=== PATIENT | male | born 1980 | race African-American/Black ===

== ENCOUNTER 2017-11-13 06:44 | Emergency (ER) | payer SELFPAY ==
[~2017-11-13] VITALS: Ht 182.9 cm; Wt 82.0 kg
[2017-11-13] MEDS ORDERED: LORazepam 2 MG/ML VIAL ONE (06:47)
[2017-11-13] MEDS ORDERED: SODIUM CHLOR 0.9% 1000 ML INJ 1,000 ML IV ONE (06:47)
[2017-11-13 06:49] VITALS: BP 127/70; PULSE 71; RESP 22; O2SAT 95
[2017-11-13] MEDS ORDERED: SODIUM CHLORIDE 0.9% FLUSH 10 ML FLUSH IVF PRN (07:00)
[2017-11-13] MEDS ORDERED: LORazepam 2 MG/ML VIAL IVS ONE (07:00)
[2017-11-13 07:03] VITALS: BP 117/58; PULSE 77; RESP 16; O2SAT 98
[2017-11-13] MEDS ORDERED: FOSPHENYTOIN INJ 1,000 MGPE in SODIUM CHLORIDE 0.9% INJ 50 ML IV ONE (07:15)
[2017-11-13 07:21] LABS: AUTOMATED NEUTROPHIL # 5.7 TH/MM3 (1.8-7.7); BASOPHIL # 0.1 TH/MM3 (0-0.2); BASOPHIL % 0.8 % (0.0-2.0); EOSINOPHIL # 0.4 TH/MM3 (0-0.4); EOSINOPHIL % 3.7 % (0.0-4.0); HEMATOCRIT 50.6 % (39.0-51.0); HEMOGLOBIN 16.5 GM/DL (13.0-17.0); LYMPH % 34.8 % (9.0-44.0); LYMPHOCYTE # 3.9 TH/MM3 (1.0-4.8); MEAN CELL VOLUME 100.3 FL (80.0-100.0); MEAN CORPUSCULAR HEMOGLOBIN 32.8 PG (27.0-34.0); MEAN CORPUSCULAR HGB CONC 32.7 % (32.0-36.0); MEAN PLATELET VOLUME 8.1 FL (7.0-11.0); MONO % 9.4 % (0.0-8.0); MONOCYTE # 1.1 TH/MM3 (0-0.9); NEUT % 51.3 % (16.0-70.0); PLATELET COUNT 144 TH/MM3 (150-450); RED BLOOD COUNT 5.04 MIL/MM3 (4.50-5.90); RED CELL DISTRIBUTION WIDTH 13.9 % (11.6-17.2); WHITE BLOOD COUNT 11.2 TH/MM3 (4.0-11.0)
[2017-11-13] MEDS ORDERED: MIDAZOLAM HCL 2 MG/2 ML VIAL IV PUSH ONE (07:30)
[2017-11-13 07:43] LABS: ALBUMIN 3.8 GM/DL (3.4-5.0); ALT (GPT) 17 U/L (12-78); AST (GOT) 17 U/L (15-37); BICARBONATE 14.9 MEQ/L (21.0-32.0); BLOOD UREA NITROGEN 10 MG/DL (7-18); CALCIUM 8.8 MG/DL (8.5-10.1); CHLORIDE 114 MEQ/L (98-107); CREATININE 1.28 MG/DL (0.60-1.30); GLOMERULAR FILTRATION RATE 77 ML/MIN (>89); GLUCOSE,RANDOM 97 MG/DL (74-106); SODIUM (NA) 147 MEQ/L (136-145)
[2017-11-13 07:45] LABS: ALKALINE PHOSPHATASE 80 U/L (45-117); TOTAL BILIRUBIN ADULT 0.2 MG/DL (0.2-1.0)
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
[2017-11-13 08:19] VITALS: BP 106/64; PULSE 73; RESP 16; O2SAT 100
[2017-11-13 09:36] LABS: BILIRUBIN, URINE NEG (NEG); BLOOD, URINE MOD (NEG); GLUCOSE,URINE NEG (NEG); HYALINE CAST, URINE 3 /lpf (RARE); KETONE, URINE NEG (NEG); MUCUS URINE FEW /lpf (OCC); NITRITE,URINE NEG (NEG); SQUAMOUS EPITHELIAL CELL URINE <1 /hpf (0-5); URINE COLOR YELLOW (YELLW/STRAW); URINE LEUKOCYTE ESTERASE NEG (NEG)
[2017-11-13 09:59] VITALS: BP 115/71; PULSE 84; RESP 17; O2SAT 100
--- NOTE | 2017-11-13 10:10 | RADRPT ---
EXAM DATE: 11/13/2017 9:47 AM EDT AGE/SEX: 37 years / Male INDICATIONS: Seizures. CLINICAL DATA: This is the patient's initial encounter. Patient reports that signs and symptoms have been present for 1 day and indicates a pain score of Nonresponsive. MEDICAL/SURGICAL HISTORY: . Seizures. Non-responsive. RADIATION DOSE: 56.35 CTDI (mGy) COMPARISON: No prior exams available for comparison. TECHNIQUE: CT of the head without contrast. Using automated exposure control and adjustment of the mA and/or kV according to patient size, radiation dose was kept as low as reasonably achievable to ob tain optimal diagnostic quality images. DICOM format image data is available electronically for revi ew and comparison. FINDINGS: Cerebrum: The ventricles are normal. No midline shift, mass lesion, hemorrhage or acute infarction. No extraaxial fluid collections are seen. Posterior Fossa: The cerebellum and brainstem demonstrate no acute abnormality. The 4th ventricle is midline. The cerebellopontine angle is within normal limits. Extracranial: The visualized sinuses are clear. Skull: The calvaria is intact. No skull fracture. CONCLUSION: No acute intracranial abnormality is identified. Electronically signed by: Ruperto Georges MD 11/13/2017 10:09 AM EDT
--- NOTE | 2017-11-13 12:13 | RADRPT ---
EXAM DATE: 11/13/2017 12:07 PM EDT AGE/SEX: 37 years / Male INDICATIONS: Right shoulder pain post fall. CLINICAL DATA: This is the patient's initial encounter. Patient reports that signs and symptoms have been present for 1 day and indicates a pain score of 10/10. MEDICAL/SURGICAL HISTORY: None. None. COMPARISON: No prior exams available for comparison. FINDINGS: Multiple views of the right shoulder were obtained and demonstrate a nondisplaced fracture deformity involving the head and neck. The glenoid is intact. There is a normal acromioclavicular relationship. CONCLUSION: Nondisplaced fracture deformity of the humeral head and neck. Electronically signed by: Parminder Mar MD 11/13/2017 12:11 PM EDT
[2017-11-13] MEDS ORDERED: NORC5TAB PO (12:55)
[2017-11-13] MEDS ORDERED: ACETAMINOPHEN/HYDROcodone 325 MG/5 MG TAB PO ONE (13:00)
[2017-11-13 13:07] VITALS: BP 144/78
--- NOTE | 2017-11-13 19:03 | EKG ---
Date Performed: 11/13/2017 Time Performed: 06:56:01 PTAGE: 37 years EKG: Sinus rhythm NONSPECIFIC T-WAVE ABNORMALITY BORDERLINE ECG PREVIOUS TRACING : 02/09/2011 19.38 When compared to prior EKG,patient is no longer bradycardic DOCTOR: Marixa Peres Interpretating Date/Time 11/13/2017 19:01:14
== END 2017-11-13 13:32 | disposition home or self-care (01) ==
LOC: NEPC 06:44
DX: R56.9 Unspecified convulsions (principal); S42.214A Unspecified nondisplaced fracture of surgical neck of right humerus, initial encounter for closed fracture; R94.31 Abnormal electrocardiogram [ECG] [EKG]; F19.90 Other psychoactive substance use, unspecified, uncomplicated; F12.90 Cannabis use, unspecified, uncomplicated; Z72.0 Tobacco use; W51.XXXA Accidental striking against or bumped into by another person, initial encounter
CPT/HCPCS: 29240; 70450; 73030; 80053; 80307; 81001; 82550; 85025; 93005; 96365; 96375; 99285; J2250; J7030; Q2009; J2060

== ENCOUNTER 2017-12-19 11:26 | Inpatient (IN) ==
[~2017-12-19 11:26] MED LIST: Lidocaine PF 1% Inj 5 ML Syringe INFILTRATN ONE
[2017-12-19] MEDS ORDERED: Ketamine Inj 200 MG/20 ML Vial IM ONE (11:41)
[2017-12-19] MEDS ORDERED: Ketamine Inj 500 MG/10 ML Vial IM ONE (12:00)
[2017-12-19 12:02] LABS: Baso # (Auto) 0.1 th/mm3 (0.0-0.2); Baso % (Auto) 1.2 % (0.0-2.0); Eos # (Auto) 0.2 th/mm3 (0.0-0.4); Eos % (Auto) 2.5 % (0.0-4.0); Hematocrit 45.8 % (39.0-51.0); Lymph # (Auto) 3.2 th/mm3 (1.0-4.8); Lymph % (Auto) 42.7 % (9.0-44.0); Mean Corpuscular Hemoglobin 34.3 pg (27.0-34.0); Mean Corpuscular Volume 98.1 fL (80.0-100.0); Mean Platelet Volume 8.1 fL (7.0-11.0); Mono # (Auto) 0.5 th/mm3 (0.0-0.9); Mono % (Auto) 6.8 % (0.0-8.0); Neut # (Auto) 3.5 th/mm3 (1.8-7.7); Neut % (Auto) 46.8 % (16.0-70.0); Platelet Count 139 th/mm3 (150-450); Red Blood Count 4.67 mil/mm3 (4.50-5.90); Red Cell Distribution Width 13.6 % (11.6-17.2); White Blood Count 7.4 th/mm3 (4.0-11.0)
[2017-12-19 12:25] LABS: Alkaline Phosphatase 83 U/L (45-117); Total Protein 7.8 g/dL (6.4-8.2)
--- NOTE | 2017-12-19 12:39 | ED ---
HPI General Chief Complaint: Seizure Stated Complaint: Seizures Time Seen by Provider: 12/19/17 11:29 Source: family and EMS Mode of arrival: EMS Limitations: altered mental status History of Present Illness HPI Narrative: The patient is a 37-year-old male was brought in by EMS after experiencing 10 minute seizure at home. He had a previous event recently associated with dehydration. He is not on anti-seizure medications. His sister that was here reported that he was out working all day without any hydration. His girlfriend that came a few minutes later stated that they did smoke marijuana but he does smoke marijuana daily. They deny any synthetic marijuana K2 or spice. No other drugs. EMS gave 3 mg of Versed en route with eventually cessation of his seizure. On arrival here the patient was postictal confused and combative with obvious deformity of the right shoulder. MD complaint: seizure Onset (ago): minute(s) (15) Description of Episode: loss of consciousness and tonic-clonic movement Duration of episode: 10 -: minutes(s) Witnessed: yes - by other (Fianc) Trauma: Yes (RIGHT SHOULDER) Seizure History: other (RECENT SEIZURE ) Place: home Possible Precipitating Event: drug use (MARIJUANA), lack of sleep and other ( DEHYDRATION AND FATIGUE) Related Data Home Medications Medication Instructions Recorded Confirmed No Known Home Medications 12/19/17 12/19/17 Allergies Allergy/AdvReac Type Severity Reaction Status Date / Time No Known Allergies Allergy Unverified 12/19/17 11:31 Review of Systems ROS Unobtainable unobtainable due to mental status Except as stated in HPI: all other systems reviewed are negative [facility] Medical History Medical History Patient denies medical problems (Acute) Surgical History Surgical History No history of previous surgery (Acute) Social History Social History Substance History: Active Abuse Second Hand Smoke Exposure: No Smoking Status: Current every day smoker Tobacco Type: Cigarettes How Often Do You Have a Drink Containing Alcohol: 2 to 4 times a month Recent Travel in [facility] within the Last 8 Weeks: No Recent Out of Country Travel within the Last 8 Weeks: No Exam Const General: acute distress, combative and other (Right upper extremity sling.) Nutritional Appearance: thin Orientation: awake and confused Limitations: altered mental status [facility] Head: normal to inspection Nose: external nose normal Face and sinus: normal facial exam Eyes General: appearance normal, both eyes and all related structures Conjunctivae: conjunctivae normal Sclera: sclerae normal Pupils: PERRL Neck Neck: normal visual inspection and full ROM Chest Chest: normal inspection of the chest and no crepitus Resp Effort & Inspection: normal respiratory effort and able to speak in complete sentences Auscultation: clear to auscultation bilaterally Cardio Rate: bradycardic Rhythm: regular rhythm Heart Sounds: S1 normal, S2 normal and no murmurs GI Inspection: normal to inspection Palpation: soft and nontender External: normal external exam and circumcised Penis: normal penis Back/Spine/Pelvis Back: no CVA tenderness Cervical Spine: No normal cervical lordosis and loss of normal cervical lordosis Neuro General: alert, awake, tone normal, moves all extremities, normal light touch, pain and propioception, no focal motor deficits and CN's II-XI intact bilaterally Cranial Nerves: PERRL Speech: speech normal Extrem Other: Deformity noted on right shoulder. Patient is on the sling. Radial and ulnar pulses are intact. Sensation intact no regimental patch numbness. Tenderness to palpation over the glenohumeral joint Course Reevaluation(s) Reevaluation #1: Pt isimproving. He was given IM ketamine 50 mg with marked improvement of his agitation resolution of his pain. He is more consolable at this time able to communicate and he told his that he had smoked some marijuana prior having seizures he is not sure if it was laced or if was a sympathetic. He thinks it was regular marijuana. He had similar symptoms in the past after he smoked. Appears that he is having his dislocated right shoulder was sent to radiology suite for imaging. Hemodynamically stable. Time: 12:39 Reevaluation #3: Called in by the patient's fianc stating that he looks like he is getting foggy again like he did prior to having his seizure. Patient is alert and oriented. Appears a little chronic. We will get a given fluids and also start him on Keppra prophylactically. He is alert and oriented. No seizure-like activity. Time: 15:43 Initial Documented Vital Signs Temperature 97.9 F 12/19/17 11:38 Pulse Rate 82 12/19/17 11:38 Respiratory Rate 22 12/19/17 11:38 Blood Pressure 147/71 H 12/19/17 11:38 Pulse Oximetry 98 12/19/17 11:38 Last Documented Vital Signs Temperature 98.3 F 12/19/17 18:08 Pulse Rate 58 L 12/19/17 18:08 Respiratory Rate 17 12/19/17 18:08 Blood Pressure 148/75 H 12/19/17 18:08 Pulse Oximetry 99 12/19/17 18:08 Critical Care Time Critical Care Time: Yes Total Critical Care Time: 30 Attestation: Aggregate critical care time was 30 minutes. Time to perform other separately billable procedures was not included in the critical care time. My time did not include minutes spent treating any other patients simultaneously or on activities that did not directly contribute to the patient's treatment. The services I provided to this patient were to treat and/or prevent clinically significant deterioration that could result in: loss of current lifestyle I provided critical care services requiring my management, as noted below: Chart data review, documentation time, medication orders and management, vital sign assessments/reviewing monitor data, ordering and reviewing lab tests, ordering and interpreting/reviewing x-rays and diagnostic studies, care of the patient and discussion of the patient with the admitting physicians.. Medical Decision Making MDM Narrative Medical decision making narrative: Patient status epilepticus requiring several dose of Versed by EMS for resolution of his seizure. Traumatic right shoulder fracture with mild posterior dislocation of the humeral head in relation to the glenohumeral joint comminuted intra-articular. Discuss with orthopedic surgeon clinical sales consultant who recommended reduction in the ED however due to time constraints and dealing with other critical care patients in addition to the fact that I did not feel comfortable reducing the shoulder on this patient being that he was not compliant initially with even a simple exam and he required ketamine for analgesia as well as relief from his agitation. Received several doses of morphine. We did obtain a CT of the right shoulder that revealed the above- mentioned injuries. The prostate was discussed with the orthopedic surgeon several times however were not able to reduce him in the ED department and the patient was transferred to the floor while we were dealing with a critical care patient. Findings and presentation also discussed with admitting team. The patient was given IV Keppra for seizure prophylaxis. Fluids were also given. Tox screen was positive for cannabinoids and benzodiazepines however those were given by EMS en route. No sensory or neural deficits on affected extremity distally. No regimental patch paresthesias. Analgesia was provided with IV morphine. Patient was placed on a sling and swath as per or so recommendations. Lab Data Lab results reviewed: Yes I reviewed the patient's lab results. Result diagrams: 12/19/17 11:35 12/19/17 11:35 Lab Results 12/19/17 12/19/17 12/19/17 Range/Units 11:35 11:35 11:35 WBC 7.4 (4.0-11.0) th/mm3 RBC 4.67 (4.50-5.90) mil/mm3 Hgb 16.0 (13.0-17.0) gm/dL Hct 45.8 (39.0-51.0) % MCV 98.1 (80.0-100.0) fL MCH 34.3 H (27.0-34.0) pg MCHC 35.0 (32.0-36.0) % RDW 13.6 (11.6-17.2) % Plt Count 139 L (150-450) th/mm3 MPV 8.1 (7.0-11.0) fL Neut % (Auto) 46.8 (16.0-70.0) % Lymph % (Auto) 42.7 (9.0-44.0) % [place] % (Auto) 6.8 (0.0-8.0) % Eos % (Auto) 2.5 (0.0-4.0) % Baso % (Auto) 1.2 (0.0-2.0) % Neut # (Auto) 3.5 (1.8-7.7) th/mm3 Lymph # (Auto) 3.2 (1.0-4.8) th/mm3 [place] # (Auto) 0.5 (0.0-0.9) th/mm3 Eos # (Auto) 0.2 (0.0-0.4) th/mm3 Baso # (Auto) 0.1 (0.0-0.2) th/mm3 WBC Differential . Differential Comment Auto diff final ESR (0-15) mm/hr Sodium 143 (136-145) meq/L Potassium 4.5 (3.5-5.1) meq/L Chloride 114 H (98-107) meq/L Carbon Dioxide 21.3 (21.0-32.0) meq/L Anion Gap 8 (5-15) meq/L BUN 14 (7-18) mg/dL Creatinine 1.34 H (0.60-1.30) mg/dL Estimated GFR 73 L (>89) mL/min Random Glucose 95 (74-106) mg/dL Calcium 8.7 (8.5-10.1) mg/dL Total Bilirubin 0.4 (0.2-1.0) mg/dL AST 21 (15-37) U/L ALT 20 (12-78) U/L Alkaline Phosphatase 83 (45-117) U/L Total Protein 7.8 (6.4-8.2) g/dL Albumin 3.9 (3.4-5.0) g/dL Vitamin B12 (193-986) pg/mL TSH (0.358-3.740) uIU/mL Thyroxine (T4) (4.5-12.1) mcg/dL Urine Opiates Screen (Neg) Ur Barbiturates Screen (Neg) Ur Amphetamines Screen (Neg) U Benzodiazepines Scrn (Neg) Urine Cocaine Screen (Neg) U Cannabinoids Screen (Neg) Serum Alcohol Less than 3 (0-5) mg/dL 12/19/17 12/19/17 12/19/17 Range/Units 11:35 11:35 13:44 WBC (4.0-11.0) th/mm3 RBC (4.50-5.90) mil/mm3 Hgb (13.0-17.0) gm/dL Hct (39.0-51.0) % MCV (80.0-100.0) fL MCH (27.0-34.0) pg MCHC (32.0-36.0) % RDW (11.6-17.2) % Plt Count (150-450) th/mm3 MPV (7.0-11.0) fL Neut % (Auto) (16.0-70.0) % Lymph % (Auto) (9.0-44.0) % [place] % (Auto) (0.0-8.0) % Eos % (Auto) (0.0-4.0) % Baso % (Auto) (0.0-2.0) % Neut # (Auto) (1.8-7.7) th/mm3 Lymph # (Auto) (1.0-4.8) th/mm3 [place] # (Auto) (0.0-0.9) th/mm3 Eos # (Auto) (0.0-0.4) th/mm3 Baso # (Auto) (0.0-0.2) th/mm3 WBC Differential Differential Comment ESR 4 (0-15) mm/hr Sodium (136-145) meq/L Potassium (3.5-5.1) meq/L Chloride (98-107) meq/L Carbon Dioxide (21.0-32.0) meq/L Anion Gap (5-15) meq/L BUN (7-18) mg/dL Creatinine (0.60-1.30) mg/dL Estimated GFR (>89) mL/min Random Glucose (74-106) mg/dL Calcium (8.5-10.1) mg/dL Total Bilirubin (0.2-1.0) mg/dL AST (15-37) U/L ALT (12-78) U/L Alkaline Phosphatase (45-117) U/L Total Protein (6.4-8.2) g/dL Albumin (3.4-5.0) g/dL Vitamin B12 430 (193-986) pg/mL TSH 1.320 (0.358-3.740) uIU/mL Thyroxine (T4) 8.7 (4.5-12.1) mcg/dL Urine Opiates Screen Neg (Neg) Ur Barbiturates Screen Neg (Neg) Ur Amphetamines Screen Neg (Neg) U Benzodiazepines Scrn Pos H (Neg) Urine Cocaine Screen Neg (Neg) U Cannabinoids Screen Pos H (Neg) Serum Alcohol (0-5) mg/dL Imaging Data Radiologist's impression: Head MRI 12/19/17 00:00 CONCLUSION: 1. Small 0.6 cm increased signal seen in the right frontal white matter. This may represent a small area of demyelination. Significant mass effect is not seen. 2. Focal area of low signal seen on the SWI images at the left temporal occipital region likely related to a prior area of hemorrhage. No acute abnormalities in this region. Cervical Spine CT 12/19/17 11:29 CONCLUSION: 1. No acute fracture or prevertebral soft tissue swelling. 2. Mild cervical spondylosis at C4-5, C5-6 and C6-7. Chest X-Ray 12/19/17 11:29 CONCLUSION: No acute cardiopulmonary disease. Head CT 12/19/17 11:29 CONCLUSION: 1. Negative CT Head non contrast. . Shoulder X-Ray 12/19/17 11:29 CONCLUSION: Acute comminuted fracture of the medial humeral head. Shoulder CT 12/19/17 12:52 CONCLUSION: 1. Fracture dislocation involving the humeral head with posterior dislocation of the humerus with respect to the glenoid. There are multiple comminuted fragments. ECG Data Attestation: I personally reviewed and interpreted this ECG as follows: Interpretation: 1339 on December 19. Sinus bradycardia with ventricular rate of 55 bpm. Normal RI interval. Normal QTc interval. Normal axis. No signs of acute ischemia. Discharge Plan Discharge Disposition Patient Disposition: 30 Still Patient Discharge Condition Condition: Stable Discharge Details Diagnosis: Epileptic seizure, Intractable seizure disorder, Closed fracture dislocation of shoulder joint Physicians Team ED Provider: Riley Espinal Primary Care Provider: Primary Care Kimberly Starks Attending Provider: Chidi Moreno Other Providers: Boston Melgar ; Salvador Herron Discharge Interventions Interventions: ED Discharge Assessment Last Done: 12/19/17 19:27 Vital Signs Last Done: 12/19/17 16:00 Status ED Status: Left Department Discharge Information Discharge Date/Time: 12/19/17 19:28
[2017-12-19 12:55] LABS: Alanine Aminotransferase 20 U/L (12-78); Albumin 3.9 g/dL (3.4-5.0); Anion Gap 8 meq/L (5-15); Aspartate Aminotransferase 21 U/L (15-37); Blood Urea Nitrogen 14 mg/dL (7-18); Calcium 8.7 mg/dL (8.5-10.1); Carbon Dioxide 21.3 meq/L (21.0-32.0); Chloride 114 meq/L (98-107); Glomerular Filtration Rate 73 mL/min (>89); Glucose,Random 95 mg/dL (74-106); Potassium 4.5 meq/L (3.5-5.1); Sodium 143 meq/L (136-145)
--- NOTE | 2017-12-19 13:01 | XR ---
EXAM DATE: 12/19/2017 12:56 PM EDT AGE/SEX: 37 years / Male INDICATIONS: Chest pain after seizure. CLINICAL DATA: This is the patient's initial encounter. Patient reports that signs and symptoms have been present for 1 day and indicates a pain score of 5/10. MEDICAL/SURGICAL HISTORY: None. None. COMPARISON: [facility] [place], CHEST PA & LAT, 02/09/2011. . FINDINGS: A single AP view of the chest demonstrates the lungs to be symmetrically aerated without evidence of mass, infiltrate or effusion. The cardiomediastinal contours are unremarkable. Osseous structures a re intact. CONCLUSION: No acute cardiopulmonary disease. Electronically signed by: Parminder Mar MD 12/19/2017 1:00 PM EDT
--- NOTE | 2017-12-19 13:03 | XR ---
EXAM DATE: 12/19/2017 12:58 PM EDT AGE/SEX: 37 years / Male INDICATIONS: Right shoulder pain after seizure. CLINICAL DATA: This is the patient's initial encounter. Patient reports that signs and symptoms have been present for 1 day and indicates a pain score of 10/10. MEDICAL/SURGICAL HISTORY: None. None. [place] [facility] [place] (>2VWS[place] 11/13/2017. . FINDINGS: AP and Y views of left shoulder were obtained and demonstrate a comminuted fracture deformity involvi ng the medial head numerous. The glenoid appears grossly intact. The acromioclavicular joint is intac t as well. CONCLUSION: Acute comminuted fracture of the medial humeral head. Electronically signed by: Parminder Mar MD 12/19/2017 1:01 PM EDT
[2017-12-19 14:10] LABS: Amphetamine Screen,Urine Neg (Neg); Barbiturate Screen,Urine Neg (Neg); Cannabinoid Screen,Urine Pos (Neg); Cocaine Screen,Urine Neg (Neg)
[2017-12-19 14:13] LABS: Opiate Screen,Urine Neg (Neg)
[2017-12-19] MEDS ORDERED: Morphine Inj 4 MG/ML Vial IV.PUSH ONE (14:25)
--- NOTE | 2017-12-19 15:11 | CT ---
EXAM DATE: 12/19/2017 3:07 PM EDT AGE/SEX: 37 years / Male INDICATIONS: Seizures with fall. CLINICAL DATA: This is the patient's initial encounter. Patient reports that signs and symptoms have been present for 1 day and indicates a pain score of 5/10. MEDICAL/SURGICAL HISTORY: None. None. RADIATION DOSE: 56.35 CTDI (mGy) COMPARISON: [facility] [place]IN [place]/O [place], 11/13/2017. . TECHNIQUE: CT of the head without contrast. Using automated exposure control and adjustment of the mA and/or kV according to patient size, radiation dose was kept as low as reasonably achievable to ob tain optimal diagnostic quality images. DICOM format image data is available electronically for revi ew and comparison. FINDINGS: Cerebrum: The ventricles are normal for age. No evidence of midline shift, mass lesion, hemorrhage or acute infarction. No extraaxial fluid collections are seen. Posterior Fossa: The cerebellum and brainstem are intact. The 4th ventricle is midline. The cerebe llopontine angle is unremarkable. Extracranial: The visualized portion of the orbits is intact. Skull: The calvaria is intact. No evidence of skull fracture. CONCLUSION: 1. Negative CT Head non contrast. . Electronically signed by: Servando Feliz MD 12/19/2017 3:09 PM EDT
--- NOTE | 2017-12-19 15:20 | CT ---
EXAM DATE: 12/19/2017 3:11 PM EDT AGE/SEX: 37 years / Male INDICATIONS: Seizures with fall. CLINICAL DATA: This is the patient's initial encounter. Patient reports that signs and symptoms have been present for 1 day and indicates a pain score of 5/10. MEDICAL/SURGICAL HISTORY: None. None. RADIATION DOSE: 22.48 CTDI (mGy) COMPARISON: No prior exams available for comparison. TECHNIQUE: Contiguous axial images were obtained using helical multirow detector technique. The vol umetric data was post-processed with multiplanar reconstruction in oblique axial, sagittal, and coron al planes. Using automated exposure control and adjustment of the mA and/or kV according to patient s ize, radiation dose was kept as low as reasonably achievable to obtain optimal diagnostic quality nelsy ges. DICOM format image data is available electronically for review and comparison. FINDINGS: There is no acute fracture or prevertebral soft tissue swelling. Mild cervical spondylosis is noted a t C4-5, C5-6, and C6-7. C2-3: The bony spinal canal is normal in size. No evidence of disc bulge or herniation. The neural foramina are bilaterally patent. C3-4: The bony spinal canal is normal in size. No evidence of disc bulge or herniation. The neural foramina are bilaterally patent. C4-5: The bony spinal canal is normal in size. No evidence of disc bulge or herniation. The neural foramina are bilaterally patent. C5-6: The bony spinal canal is normal in size. No evidence of disc bulge or herniation. The neural foramina are bilaterally patent. C6-7: The bony spinal canal is normal in size. No evidence of disc bulge or herniation. The neural foramina are bilaterally patent. C7-T1: The bony spinal canal is normal in size. No evidence of disc bulge or herniation. The neura l foramina are bilaterally patent. CONCLUSION: 1. No acute fracture or prevertebral soft tissue swelling. 2. Mild cervical spondylosis at C4-5, C5-6 and C6-7. Electronically signed by: Servando Feliz MD 12/19/2017 3:19 PM EDT
[2017-12-19] MEDS ORDERED: Sod Chloride 0.9% Inj 1,000 ML IV.SIG ONE (15:32)
[2017-12-19] MEDS ORDERED: levETIRAcetam 500mg/100mL Inj 100 ML IV.SIG ONE (15:32)
--- NOTE | 2017-12-19 15:39 | CT ---
EXAM DATE: 12/19/2017 3:25 PM EDT AGE/SEX: 37 years / Male INDICATIONS: Right shoulder pain and decreased range of motion after trauma with known fracture seen on plain film. CLINICAL DATA: This is the patient's initial encounter. Patient reports that signs and symptoms have been present for 1 day and indicates a pain score of 10/10. MEDICAL/SURGICAL HISTORY: None. None. RADIATION DOSE: 32.88 CTDI (mGy) COMPARISON: [facility] – [place], SHOULDER LIMITED RIGHT 2V, 12/19/2017. . TECHNIQUE: Multiple contiguous axial images were acquired using a multirow detector CT scanner witho ut contrast. Multiplanar reconstruction was performed in the sagittal and coronal planes. Using aut omated exposure control and adjustment of the mA and/or kV according to patient size, radiation dose was kept as low as reasonably achievable to obtain optimal diagnostic quality images. DICOM format i mage data is available electronically for review and comparison. FINDINGS: Bones: There is a moderately comminuted fracture deformity involving the medial humeral head with mu ltiple fracture fragments. The neural head is displaced posterior to the glenoid on the axial views t he glenoid is intact. The chromic clavicular joint is intact as well. The visualized ribs demonstrate no evidence of fracture. Joints: No significant arthropathy or bony hypertrophy is seen. Soft Tissues: There is overlying soft tissue swelling. Other: No foreign bodies seen. CONCLUSION: 1. Fracture dislocation involving the humeral head with posterior dislocation of the humerus with re spect to the glenoid. There are multiple comminuted fragments. Electronically signed by: Parminder Mar MD 12/19/2017 3:38 PM EDT
[2017-12-19] MEDS ORDERED: Morphine Inj 4 MG/ML Vial IV.PUSH PRN ×2 (16:38→21:50)
--- NOTE | 2017-12-19 17:23 | P.HP ---
History of Present Illness Primary Care Physician: No Primary Care Physician History of Present Illness: 37-year-old being admitted for recurring seizures. Patient was in his usual state of health until sometime earlier this morning the patient was complaining of not feeling well and wanted to stay home from work today. Girlfriend noticed that at some point early this morning he was sweating in his sleep. After waking up for the day, the girlfriend noticed that he was seizing while he was still laying in bed. She describes his seizures as his right side "flopping about" with his right elbow elevated and posteriorly flexed; says he was drooling and sounded like he was gurgling, with his eyes moving in multiple directions. Girlfriend says that this lasted 15 minutes and then it stopped where he had a span of confusion. Seizure recurred again lasting another 15 minutes by which time EMS that showed up. They had administered Ativan to him as well. Patient upon arriving to the hospital was complaining of profound right shoulder pain. CT of the right shoulder was done which per radiology shows an acute comminuted humerus fracture that is posteriorly dislocated. CT head was negative. Blood work and electrolytes is negative so far. Patient is lucid upon my examination Patient apparently presented to the emergency department about 2 weeks ago with a similar presentation and was discharged home. At that time he had a nondisplaced humeral fracture and was discharged and a swath and sling. Was not placed on antiepileptics at that time. Inpatient Certification: I certify that the inpatient services were ordered in accordance with Medicare regulations governing the order. This includes certification that hospital inpatient services are reasonable and necessary and in the case of services not specified as inpatient-only under 42 CFR 419.22(n), that they are appropriately provided as inpatient services in accordance to with the 2-midnight benchmark under 43 CFR 412.3(e) Estimated Total Length of Stay (Days): 2 Plans for Post Hospital Care: Home Review of Systems All other systems reviewed negative except as stated in HPI PMFSH - History History Provided By: Patient, Family Member - Medical History Medical History: Medical History (Last Reviewed 12/20/17 @ 20:30 by Sandy Villar MD) Patient denies medical problems Seizure disorder - Surgical History Surgical History: Surgical History (Last Reviewed 12/20/17 @ 20:30 by Sandy Villar MD) No history of previous surgery - Tobacco History Second Hand Smoke Exposure: No Tobacco Use In Past 30 Days: Yes Smoking Status: Current every day smoker Tobacco Type: Cigarettes - Alcohol History How Often Do You Have a Drink Containing Alcohol: 2 to 4 times a month - Substance Use History Substance History: Active Abuse - Substance Use Type Marijuana Status: Active Route Used: Inhalation Reason for Use: Calm Down - Travel History Recent Travel in the [place] Within the Last 8 Weeks: No Recent Travel Out of the Country Within the Last 8 Weeks: No - Immunization History Tetanus Immunization: Unsure Hx Influenza Vaccine This Season: No Medications and Allergies Active Medications: Active Medications Levetiracetam (Keppra) 500 mg PO BID KYARA Morphine Sulfate (Morphine Inj) 4 mg IV.PUSH Q4H PRN PRN Reason: Acute Pain 1-5 Allergies Allergy/AdvReac Type Severity Reaction Status Date / Time No Known Allergies Allergy Unverified 12/19/17 11:31 Home Medications Medication Instructions Recorded Confirmed Type No Known Home Medications 12/19/17 12/20/17 History Exam Vital signs: Vital Signs 12/19/17 11:38 12/19/17 12:28 12/19/17 13:00 Temperature 97.9 F Pulse Rate 82 67 61 Respiratory Rate 22 25 H 18 Blood Pressure 147/71 H 145/63 H 140/60 Pulse Oximetry 98 100 12/19/17 14:00 12/19/17 15:39 12/19/17 16:00 Temperature Pulse Rate 56 L 49 L 55 L Respiratory Rate 25 H 18 16 Blood Pressure 160/84 H 143/78 H 135/76 Pulse Oximetry 100 100 Intake & Output 12/18/17 12/19/17 12/19/17 18:59 06:59 18:59 Weight 83.915 kg Narrative: VS: afebrile GENERAL: Sitting up in bed, in acute pain from right shoulder, but oriented and awake SKIN: Warm and dry. EYES: Pupils equal and round. No scleral icterus. No injection or drainage. ENT: No nasal bleeding or discharge. Mucous membranes pink and moist. CARDIOVASCULAR: Regular rate and rhythm. no murmurs RESPIRATORY: No accessory muscle use. Clear to auscultation. Breath sounds equal bilaterally. GASTROINTESTINAL: Abdomen soft, non-tender, nondistended. Hepatic and splenic margins not palpable. Extremities: No clubbing, cyanosis, or edema. No obvious deformities. MUSCULOSKELETAL: Right arm and shoulder and swath and swing; adequate muscle bulk and tone of all extremities NEUROLOGICAL: Awake and alert. No obvious cranial nerve deficits. No facial droop nor slurred speech noted. 2+ patellar reflexes bilaterally. Intact sensation to light touch over bilateral lower extremities. Extraocular motions intact. No facial droop, no slurred speech, uvula and tongue protrusion midline PSYCHIATRIC: Appropriate mood and affect; insight and judgment normal. Results - Labs CBC & Chem 7: 12/19/17 11:35 12/19/17 11:35 Labs: Laboratory Results - last 24 hr 12/19/17 12/19/17 12/19/17 11:35 11:35 11:35 WBC 7.4 RBC 4.67 Hgb 16.0 Hct 45.8 MCV 98.1 MCH 34.3 H MCHC 35.0 RDW 13.6 Plt Count 139 L MPV 8.1 Neut % (Auto) 46.8 Lymph % (Auto) 42.7 Haywood % (Auto) 6.8 Eos % (Auto) 2.5 Baso % (Auto) 1.2 Neut # (Auto) 3.5 Lymph # (Auto) 3.2 Haywood # (Auto) 0.5 Eos # (Auto) 0.2 Baso # (Auto) 0.1 WBC Differential . Differential Comment Auto diff final Sodium 143 Potassium 4.5 Chloride 114 H Carbon Dioxide 21.3 Anion Gap 8 BUN 14 Creatinine 1.34 H Estimated GFR 73 L Random Glucose 95 Calcium 8.7 Total Bilirubin 0.4 AST 21 ALT 20 Alkaline Phosphatase 83 Total Protein 7.8 Albumin 3.9 Urine Opiates Screen Ur Barbiturates Screen Ur Amphetamines Screen U Benzodiazepines Scrn Urine Cocaine Screen U Cannabinoids Screen Serum Alcohol Less than 3 12/19/17 13:44 WBC RBC Hgb Hct MCV MCH MCHC RDW Plt Count MPV Neut % (Auto) Lymph % (Auto) Haywood % (Auto) Eos % (Auto) Baso % (Auto) Neut # (Auto) Lymph # (Auto) Haywood # (Auto) Eos # (Auto) Baso # (Auto) WBC Differential Differential Comment Sodium Potassium Chloride Carbon Dioxide Anion Gap BUN Creatinine Estimated GFR Random Glucose Calcium Total Bilirubin AST ALT Alkaline Phosphatase Total Protein Albumin Urine Opiates Screen Neg Ur Barbiturates Screen Neg Ur Amphetamines Screen Neg U Benzodiazepines Scrn Pos H Urine Cocaine Screen Neg U Cannabinoids Screen Pos H Serum Alcohol - Imaging Impressions Cervical Spine CT 12/19/17 11:29 CONCLUSION: 1. No acute fracture or prevertebral soft tissue swelling. 2. Mild cervical spondylosis at C4-5, C5-6 and C6-7. Chest X-Ray 12/19/17 11:29 CONCLUSION: No acute cardiopulmonary disease. Head CT 12/19/17 11:29 CONCLUSION: 1. Negative CT Head non contrast. . Shoulder X-Ray 12/19/17 11:29 CONCLUSION: Acute comminuted fracture of the medial humeral head. Shoulder CT 12/19/17 12:52 CONCLUSION: 1. Fracture dislocation involving the humeral head with posterior dislocation of the humerus with respect to the glenoid. There are multiple comminuted fragments. Caprini VTE Risk Assessment Caprini VTE Risk Assessment: No/Low Risk (score <= 1) Caprini Risk Assessment Model: Point Value = 1 Point Value = 2 Point Value = 3 Point Value = 5 Age 41-60 Minor surgery BMI > 25 kg/m2 Swollen legs Varicose veins or History of unexplained or recurrent spontaneous Oral contraceptives or hormone replacement Sepsis (< 1 month) Serious lung disease, including pneumonia (< 1 month) Abnormal pulmonary function Acute myocardial infarction Congestive heart failure (< 1 month) History of inflammatory bowel disease Medical patient at bed rest Age 61-74 Arthroscopic surgery Major open surgery (> 45 min) Laparoscopic surgery (> 45 min) Malignancy Confined to bed (> 72 hours) Immobilizing plaster cast Central venous access Age >= 75 History of VTE Family history of VTE Factor V Leiden Prothrombin [id number] Lupus anticoagulant Anticardiolipin antibodies Elevated serum homocysteine Heparin-induced thrombocytopenia Other congenital or acquired thrombophilia Stroke (< 1 month) Elective arthroplasty Hip, pelvis, or leg fracture Acute spinal cord injury (< 1 month) Prophylaxis Regimen: Total Risk Factor Score Risk Level Prophylaxis Regimen 0-1 Low Early ambulation 2 Moderate Order ONE of the following: *Sequential Compression Device (SCD) *Heparin 5000 units SQ BID 3-4 Higher Order ONE of the following medications: *Heparin 5000 units SQ TID *Enoxaparin/Lovenox 40 mg SQ daily (WT < 150 kg, CrCl > 30 mL/min) *Enoxaparin/Lovenox 30 mg SQ daily (WT < 150 kg, CrCl > 10-29 mL/min) *Enoxaparin/Lovenox 30 mg SQ BID (WT < 150 kg, CrCl > 30 mL/min) AND/OR *Sequential Compression Device (SCD) 5 or more Highest Order ONE of the following medications: *Heparin 5000 units SQ TID (Preferred with Epidurals) *Enoxaparin/Lovenox 40 mg SQ daily (WT < 150 kg, CrCl > 30 mL/min) *Enoxaparin/Lovenox 30 mg SQ daily (WT < 150 kg, CrCl > 10-29 mL/min) *Enoxaparin/Lovenox 30 mg SQ BID (WT < 150 kg, CrCl > 30 mL/min) AND *Sequential Compression Device (SCD) Assessment and Plan - Plan 37-year-old black male being admitted for recurring seizures. Seizures -Relatively new onset, -Already received loading Keppra dose, continue twice daily 500 mg of Keppra -Severe enough to dislocate shoulder, patient was counseled extensively on refraining from driving for many months. Ordering head MRI with and without contrast as well as EEG. Ordering neurology consult given the relatively new onset nature of his seizures. Urine drug screen is unremarkable for any stimulants. -Seizure precautions and telemetry Acute comminuted fracture of right humerus -Likely worsened and became displaced as the patient had previously shown a fractured shoulder about 2 weeks ago; orthopedic surgery has been consulted
[2017-12-19] MEDS: levETIRAcetam 500 MG Tablet PO SCH (17:36)
[2017-12-19 19:06] LABS: T4 (Thyroxine) 8.7 mcg/dL (4.5-12.1); Thyroid Stimulating Hormone 1.32 uIU/mL (0.358-3.740)
[2017-12-19] MEDS ORDERED: Chlorhexidine Gluconate 2% 1 Pack (2 Cloths) TOPICAL SCH (19:30)
[2017-12-19] MEDS ORDERED: Metoprolol Tartrate 25 MG Tablet PO SCH (19:30)
--- NOTE | 2017-12-19 19:44 | MR ---
EXAM DATE: 12/19/2017 6:53 PM EDT AGE/SEX: 37 years / Male INDICATIONS: Seizures. CLINICAL DATA: This is the patient's initial encounter. Patient reports that signs and symptoms have been present for 1 day and indicates a pain score of 8/10. MEDICAL/SURGICAL HISTORY: None. . Hand sx. COMPARISON: [facility] – [place], CT HEAD W/O CONTRAST, 12/19/2017. . TECHNIQUE: Multiplanar, multisequence examination of the brain was performed without contrast. FINDINGS: Cerebrum: The ventricles are normal for age. No evidence of midline shift, mass lesion, hemorrhage or acute infarction. There is a focal area of decreased signal seen in the posterior left temporal p arietal region likely related to a prior hemorrhage. An area of acute hemorrhage or mass effect is no t seen currently. No extraaxial fluid collections are seen. The pituitary gland and suprasellar cist yuval are normal in configuration. White Matter: There is a small 0.6 cm area of increased signal seen in the right frontal white matte r. No other abnormalities seen within the white matter. Posterior Fossa: The cerebellum and brainstem are intact. The 4th ventricle is midline. The cerebel lopontine angle is unremarkable. The cerebellar tonsils are normal in position. Diffusion Imaging: No focal areas of restricted diffusion are seen. No evidence of acute infarction . Extracranial: The visualized portions of the orbits and paranasal sinuses are unremarkable. CONCLUSION: 1. Small 0.6 cm increased signal seen in the right frontal white matter. This may represent a small area of demyelination. Significant mass effect is not seen. 2. Focal area of low signal seen on the SWI images at the left temporal occipital region likely rela edvin to a prior area of hemorrhage. No acute abnormalities in this region. Electronically signed by: Ruperto Enriquez MD 12/19/2017 7:43 PM EDT
[2017-12-19] MEDS ORDERED: Sodium Chlor 0.9% Inj 500 ML IV.SIG SCH (20:00)
--- NOTE | 2017-12-19 20:10 | MB ---
cc: Salvador Herron MD, James M MD DATE: 12/19/2017 REASON FOR CONSULTATION: Requested to evaluate right shoulder fracture dislocation following seizure. HISTORY OF PRESENT ILLNESS: Art Murphy is a 37-year-old male with past history of seizure, who sustained a significant seizure earlier today. Overall, he had some prodromal symptoms of not feeling well and his girlfriend noticed him having a seizure while he is in the bed. This is described as a significant event like a grand mal seizure that lasted for a significant period of time resulting in the patient being confused. He was complaining also of a headache on the right side of his head. The patient was brought to [facility] where he was taken through a workup in the emergency room and a CT scan of the shoulder revealed a fracture-dislocation of his shoulder, which was a posterior dislocation with some comminution about the anterior aspect of the humeral head. The patient was admitted to the medical service with consultation placed with the undersigned. PAST MEDICAL HISTORY: Significant for the history of seizure in the past, otherwise, negative. PAST SURGICAL HISTORY: Negative. SOCIAL HISTORY: He lives with his girlfriend. He uses tobacco and marijuana. Denies other drugs. Rarely uses alcohol. MEDICATIONS: His regular medications include Keppra. ALLERGIES: NO KNOWN DRUG ALLERGIES. REVIEW OF SYSTEMS: He denies active problems other than that stated above with a right-sided headache and history of seizure, but otherwise denies problems with head, ears, eyes, nose, throat, heart, lungs, kidneys, gastrointestinal tract, psychiatric, genitourinary or lymphatic or blood problems or any other active problem. PHYSICAL EXAMINATION: GENERAL: The patient is alert and oriented, and appropriate. HEENT: His head is atraumatic, normocephalic. extraocular muscles intact. Mucous membranes pink and moist. NECK: Supple, nontender. EXTREMITIES: His left shoulder is completely benign. Left Upper Extremity is completely benign. Right upper extremity shows fullness in the posterior aspect of the shoulder consistent with an obvious posterior dislocation. He has difficulty with any movement of the right upper extremity as it causes severe pain and tenderness in the shoulder region. Full range of motion of the shoulder not tested. Limited range of motion of the elbow, wrist. He appears to have intact motor and sensory and radial pulses intact. ABDOMEN: Soft and nontender. EXTREMITIES: His lower extremities show good range of motion throughout. NEUROLOGIC: Intact. SKIN: Intact throughout. IMAGING STUDIES: X-rays and CT scan are reviewed and also the MRI of the brain is reviewed, which appears benign to me but the official radiology report is not available at this time. ASSESSMENT: Right shoulder fracture dislocation. MEDICAL DECISION MAKING: The immediate issue is reduce the dislocation. I believe more likely than not this can be done with closed means. Recommend closed reduction in the operating room with the possibility of open reduction if we are unable to get a closed reduction. It is unclear if he is going to need separate surgical intervention for the fracture, but the immediate plan is to get the closed reduction to take him out of the severe pain which he is in. We may need to do more interventions in regards to this in the future. I explained all this to him. I explained there is risk of problems associated with a closed reduction including further fracturing or dislocation of the current fractures. There is the possible need for open and, with open surgical intervention, there is risk of nerve injury, blood vessel injury, anesthetic complications, medical complications, unforeseen possible complications. All of his questions and his girlfriend's questions were answered. A detailed informed consent was obtained. MD SILVER Garcia/ , 07:43 PM , 07:54 PM
[2017-12-19] MEDS ORDERED: fentaNYL Citrate Inj 100 MCG/2 ML Ampul ONE (20:43)
--- NOTE | 2017-12-19 21:15 | MP ---
cc: Salvador Herron MD, James M MD DATE OF OPERATION: 12/19/2017 PREOPERATIVE DIAGNOSIS: Right shoulder posterior fracture dislocation secondary to seizure disorder. POSTOPERATIVE DIAGNOSES: Right shoulder posterior fracture dislocation secondary to seizure disorder with unstable shoulder joint with any internal rotation. PROCEDURE: Right shoulder closed reduction under anesthesia and placement in gunslinger cast with elbow fixated with a long arm cast fixated to the mid body cast. ANESTHESIA: General. SURGEON: Salvador Herron MD COMPLICATIONS: None known. INDICATIONS: Art Murphy is a 37-year-old male, seizure disorder, who sustained a seizure earlier today and resulted in a posterior dislocation of his right humerus and a fracturing of the anterior aspect of the humeral head. The options of treatment were thoroughly discussed with the patient and detailed informed consent was obtained for closed reduction and possible open reduction. The possibility of open surgical intervention was discussed and inherent clear medical risk associated with that. We also talked about possibility of need for repeat surgical intervention, because of the fracture, the damage associated with the fracture and the possibility of significant recurrent dislocation. We talked about the probable placement in a gunslinger type sling to maintain the arm in a reduced position during the healing process. He had a good understanding. Detailed informed consent was obtained. PROCEDURE IN DETAIL: The patient was brought into the operating room and placed under a deep monitored anesthetic care essentially general anesthetic. The right shoulder was inspected. With the torso stabilized, we applied some distraction of the humerus away from the glenoid and gently moved this into an internal rotation position and then gently into an external rotation position and a visual reduction of the fracture was observed. We then took the arm into more external rotation and there was excellent stability in this position. We brought the elbow down adjacent to the trunk and brought the arm to neutral and the shoulder began to sublux and, with any internal rotation, the shoulder dislocated posteriorly. We also evaluated this fluoroscopically. There were no major fracture fragments out of place, but the stability of the shoulder required neutral to external rotation. Prior to the operation at approximately 7:30, I tried to see if we had this type of brace in the hospital. I believe typically it is ordered in. I was unsuccessful in finding this type of brace to the hospital. With the ongoing instability of the shoulder, it was therefore deemed medically necessary to proceed with placing him in a cast with a well-padded mid section around his abdominal region and a long arm cast with the elbow at 90 degrees flexion and with the elbow just off the abdominal wall by about an inch and a half and the shoulder in external rotation of approximately 30 degrees in this position. We first fashion a trunk cast and then a long arm cast and then fashioned a connection between the 2 and then finally resected the abdominal portion of the cast to facilitate respirations. The fluoroscopy was used and x-rays with the shoulder were obtained in the reduced position. When the arm was abducted, we had it x-rayed in external rotation and in neutral position and in internal rotation and with the arm abducted it remained stable, but when the arm was at the side, it was unstable when we did any internal rotation at all. Therefore, it was necessary to place this cast. After the cast was solidly dried, the patient was awakened and returned to the recovery room in stable condition. MD SILVER Garcia/ , 08:46 PM , 08:59 PM
--- NOTE | 2017-12-19 22:03 | XR ---
EXAM DATE: 12/19/2017 9:51 PM EDT AGE/SEX: 37 years / Male INDICATIONS: Closed reduction right shoulder. CLINICAL DATA: This is the patient's subsequent encounter. Patient reports that signs and symptoms h ave been present for 1 day and indicates a pain score of Nonresponsive. MEDICAL/SURGICAL HISTORY: None. None. COMPARISON: [facility] [place], SHOULDER LIMITED RIGHT 2V, 12/19/2017. [facility] [place], CT SHOULDER LEFT W/O CONTRAST, . . FINDINGS: 5 images from the OR have been submitted. The glenohumeral joint appears aligned. There are bone frag ments seen adjacent to the anterior medial proximal humerus. CONCLUSION: Good alignment of the glenohumeral joint. Electronically signed by: Ruperto Enriquez MD 12/19/2017 10:01 PM EDT
[2017-12-20] MEDS: levETIRAcetam 500 MG Tablet PO SCH (01:15)
--- NOTE | 2017-12-20 14:40 | ECG ---
Date Performed: 12/19/2017 Time Performed: 13:39:56 PTAGE: 37 years EKG: SINUS BRADYCARDIA BORDERLINE ECG Since the PREVIOUS TRACING , no significant change noted PREVIOUS TRACIN11/13/2017 06.56 DOCTOR: Roosevelt Choi Interpretating Date/Time 12/20/2017 14:39:26
[2017-12-22 16:57] LABS: Anti-Nuclear Antibody Screen Neg (Neg)
== END 2017-12-20 06:01 | disposition left against medical advice (07) ==
LOC: NEPC 11:26 → NEDA 16:37 → N06 17:59
PROVIDERS: ADMIT Hospitalist; ATTEND Hospitalist